=== PATIENT | male | born 1970 | race American Indian/Alaskan Native ===

== ENCOUNTER → 2023-03-19 | Outpatient (CLI) | payer OTHER ==
[2023-03-20 03:25] LABS: Hepatitis A Antibody IgM Nonreactive (Nonreactive); Hepatitis B Core IgM Nonreactive (Nonreactive); Hepatitis B Surface Antigen Nonreactive (Nonreactive); Hepatitis C IgG Antibody Nonreactive (Nonreactive)
[2023-03-20 17:29] LABS: ALT 20 U/L (10-49); AST 20 U/L (14-35); Albumin 4.2 g/dL (3.8-4.9); Albumin/Globulin Ratio 1.55 (1.60-3.17); Alkaline Phosphatase 75 U/L (41-126); Bilirubin, Conjugated <0.20 mg/dL (0.20-0.40); Globulin 2.7 g/dL (1.6-3.3); Total Protein 6.9 g/dL (6.2-8.2)
== END | disposition home or self-care (01) ==
LOC: LABWHC1 14:50
PROVIDERS: ATTEND Internal Medicine Gastroenterology
DX: E80.6 Other disorders of bilirubin metabolism (principal)
CPT/HCPCS: 36415; 80074; 80076; 82248